=== PATIENT | female | born 1935 | race Caucasian/White ===

== ENCOUNTER 2024-01-28 07:48 | Inpatient (IN) | payer MEDICARE ==
[~2024-01-28] VITALS: Ht 162.6 cm; Wt 38.6 kg
[2024-01-28] VITALS (7 sets, daily range): BP systolic 115–163; BP diastolic 69–103
[2024-01-28] MEDS ORDERED: METOPROLOL SUCC25 M2 PO (08:10)
[2024-01-28] MEDS ORDERED: Acetaminophen/Hydrocodone 5 MG/325 MG TABLET PO ONE (08:35)
[2024-01-28 10:24] LABS: BASO % 0.3 % (0.0-1.0); EOS # 0.1 10*3/uL (0.0-0.4); EOS % 0.5 % (1.0-4.0); HEMATOCRIT 41.1 % (37.0-47.0); LYMPH # 1.5 10*3/uL (1.3-4.4); LYMPH % 15.9 % (27.0-41.0); MEAN CORPUSCULAR HGB 30.8 pg (27.0-31.0); MEAN CORPUSCULAR HGB CONC 31.1 g/dl (33.0-37.0); MEAN PLATELET VOLUME 9.9 fl (9.6-12.3); MONO # 0.5 10*3/uL (0.1-1.0); MONO % 5.3 % (3.0-9.0); NEUT # 7.1 10*3/uL (2.3-7.9); NEUT % 77.7 % (47.0-73.0); PLATELET COUNT AUTOMATED 148 10*3/uL (130-400); RED BLOOD COUNT 4.15 10*6/uL (4.10-5.10); RED CELL DISTRI WIDTH 13.2 % (0-14.5); WHITE BLOOD COUNT 9.1 10*3/uL (4.8-10.8)
[2024-01-28 10:43] LABS: ACT PARTIAL THROMBO TIME 25.6 SECONDS (20.0-32.1)
[2024-01-28 10:44] LABS: BUN 12 mg/dl (9-23); CHLORIDE 100 mmol/L (98-107); POTASSIUM 3.7 mmol/L (3.4-5.1)
[2024-01-28] MEDS ORDERED: BISACODYL 10 MG SUPP R PRN (11:45)
[2024-01-28] MEDS ORDERED: ACETAMINOPHEN 325 MG TAB PO PRN (11:45)
[2024-01-28] MEDS ORDERED: MORPHINE Sulfate 2 MG/ML SYR IV PRN (11:45)
[2024-01-28] MEDS ORDERED: Acetaminophen/Hydrocodone 5 MG/325 MG TABLET PO PRN (11:45)
[2024-01-28] MEDS ORDERED: BISACODYL 5 MG TAB PO PRN (11:45)
[2024-01-29] VITALS (11 sets, daily range): BP systolic 111–184; BP diastolic 71–127
[2024-01-29 05:46] LABS: ALKALINE PHOSPHATASE 64 U/L (46-116); BUN 14 mg/dl (9-23); CHLORIDE 101 mmol/L (98-107); CHOLESTEROL 116 mg/dL (<200); FREE T4 1.14 ng/dl (0.89-1.76); LDL CHOLESTEROL 55 mg/dL (9-159); TOTAL PROTEIN 6.5 gm/dL (6.0-8.0); TRIGLYCERIDES 56 mg/dl (<150)
[2024-01-29 05:51] LABS: SGPT/ALT < 7 U/L (5-49)
[2024-01-29 06:11] LABS: BASO % 0.4 % (0.0-1.0); EOS # 0.3 10*3/uL (0.0-0.4); EOS % 3.1 % (1.0-4.0); HEMATOCRIT 35.3 % (37.0-47.0); LYMPH # 1.3 10*3/uL (1.3-4.4); LYMPH % 15.4 % (27.0-41.0); MEAN CELL VOLUME 98.1 fl (81.0-99.0); MEAN CORPUSCULAR HGB 31.1 pg (27.0-31.0); MEAN CORPUSCULAR HGB CONC 31.7 g/dl (33.0-37.0); MEAN PLATELET VOLUME 10.8 fl (9.6-12.3); MONO # 0.5 10*3/uL (0.1-1.0); MONO % 5.6 % (3.0-9.0); NEUT # 6.4 10*3/uL (2.3-7.9); NEUT % 75.1 % (47.0-73.0); PLATELET COUNT AUTOMATED 136 10*3/uL (130-400); RED CELL DISTRI WIDTH 13.3 % (0-14.5); WHITE BLOOD COUNT 8.4 10*3/uL (4.8-10.8)
[2024-01-29 08:49] LABS: VITAMIN D, 25-HYDROXY 19.5 ng/mL (30-100)
[2024-01-29] MEDS ORDERED: Cholecalciferol 2,000 UNIT TABLET (50 MCG) PO SCH (10:00)
[2024-01-29] MEDS ORDERED: METOPROLOL SUCCINATE XR 25 MG TAB PO SCH (10:00)
[2024-01-29] MEDS ORDERED: SODIUM CHLORIDE 0.9% 1,000 ML IV ONE (10:31)
[2024-01-29] MEDS ORDERED: ceFAZolin sodium/sodium chlor 10 ML IV ONE ×2 (10:44→13:00)
[2024-01-29] MEDS ORDERED: TRANEXAMIC ACID IN NACL,ISO-OS 100 ML IV ONE ×2 (10:44→13:00)
[2024-01-29] MEDS ORDERED: DEXAMETHASONE SODIUM PHOSP/PRESERVATIVE FREE 10 MG/ML VIAL ONE (10:48)
[2024-01-29] MEDS ORDERED: Midazolam Hydrochloride 2 MG/2 ML VIAL ONE (10:48)
[2024-01-29] MEDS ORDERED: Ropivacaine Hydrochloride 5 MG/ML 20 ML AMP IJ ONE (10:49)
[2024-01-29] MEDS ORDERED: fentaNYL CITRATE/PF 50 MCG/ML SYRINGE ONE (12:46)
[2024-01-29] MEDS ORDERED: fentaNYL CITRATE 100 MCG/2 ML VIAL IV ONE (13:05)
[2024-01-29] MEDS ORDERED: hydrALAZINE hydrochloride 20 MG/ML VIAL ONE (13:25)
[2024-01-29] MEDS ORDERED: hydrALAZINE hydrochloride 20 MG/ML VIAL IV ONE (13:45)
[2024-01-29] MEDS ORDERED: Ondansetron Hydrochloride 4 MG/2 ML VIAL IV PRN (14:00)
[2024-01-29] MEDS ORDERED: fentaNYL CITRATE/PF 50 MCG/ML SYRINGE IV ONE (14:05)
[2024-01-29] MEDS ORDERED: PROPOFOL 200 MG/20 ML VIAL IV ONE (17:30)
[2024-01-29] MEDS ORDERED: ceFAZolin sodium 1 GM in SYRINGE INFUSION 10 ML IV SCH (18:00)
[2024-01-30] VITALS: BP 107/70
[2024-01-30 08:00] VITALS: BP 125/64
[2024-01-30] MEDS ORDERED: ASPIRIN ENTERIC COATED 81 MG TAB PO SCH (10:00)
[2024-01-30 12:00] VITALS: BP 111/71
[2024-01-30 16:00] VITALS: BP 125/81
[2024-01-30 20:00] VITALS: BP 128/69
[2024-01-31 06:13] LABS: BASO % 0.3 % (0.0-1.0); EOS # 0.2 10*3/uL (0.0-0.4); EOS % 2.5 % (1.0-4.0); LYMPH # 1.2 10*3/uL (1.3-4.4); LYMPH % 15.9 % (27.0-41.0); MEAN CELL VOLUME 98.6 fl (81.0-99.0); MEAN CORPUSCULAR HGB 31.3 pg (27.0-31.0); MEAN CORPUSCULAR HGB CONC 31.7 g/dl (33.0-37.0); MEAN PLATELET VOLUME 10.3 fl (9.6-12.3); MONO # 0.7 10*3/uL (0.1-1.0); MONO % 9.3 % (3.0-9.0); NEUT # 5.5 10*3/uL (2.3-7.9); NEUT % 71.6 % (47.0-73.0); PLATELET COUNT AUTOMATED 149 10*3/uL (130-400); RED BLOOD COUNT 3.55 10*6/uL (4.10-5.10); RED CELL DISTRI WIDTH 13.4 % (0-14.5); WHITE BLOOD COUNT 7.7 10*3/uL (4.8-10.8)
[2024-01-31 08:00] VITALS: BP 150/87
[2024-01-31 12:00] VITALS: BP 119/66
[2024-01-31 16:00] VITALS: BP 112/61
[2024-01-31 20:00] VITALS: BP 114/62
[2024-02-01] VITALS: BP 110/64
[2024-02-01 06:29] LABS: BASO % 0.5 % (0.0-1.0); EOS # 0.2 10*3/uL (0.0-0.4); EOS % 3.1 % (1.0-4.0); LYMPH % 16.2 % (27.0-41.0); MEAN CELL VOLUME 99.4 fl (81.0-99.0); MEAN CORPUSCULAR HGB 30.9 pg (27.0-31.0); MEAN CORPUSCULAR HGB CONC 31.1 g/dl (33.0-37.0); MEAN PLATELET VOLUME 10.5 fl (9.6-12.3); MONO # 0.5 10*3/uL (0.1-1.0); MONO % 7.7 % (3.0-9.0); NEUT # 4.6 10*3/uL (2.3-7.9); NEUT % 72.2 % (47.0-73.0); PLATELET COUNT AUTOMATED 153 10*3/uL (130-400); RED BLOOD COUNT 3.62 10*6/uL (4.10-5.10); RED CELL DISTRI WIDTH 13.3 % (0-14.5); WHITE BLOOD COUNT 6.4 10*3/uL (4.8-10.8)
[2024-02-01 07:31] LABS: BUN 25 mg/dl (9-23); CHLORIDE 99 mmol/L (98-107); POTASSIUM 4.4 mmol/L (3.4-5.1)
[2024-02-01 08:00] VITALS: BP 176/89
[2024-02-01 12:00] VITALS: BP 132/67
[2024-02-01 16:00] VITALS: BP 146/87
[2024-02-01 20:00] VITALS: BP 148/73
[2024-02-02 00:28] VITALS: BP 166/83
[2024-02-02 06:56] LABS: BASO % 0.5 % (0.0-1.0); EOS # 0.2 10*3/uL (0.0-0.4); EOS % 2.6 % (1.0-4.0); HEMATOCRIT 35.7 % (37.0-47.0); LYMPH # 1.1 10*3/uL (1.3-4.4); LYMPH % 17.9 % (27.0-41.0); MEAN CELL VOLUME 98.9 fl (81.0-99.0); MEAN CORPUSCULAR HGB 31.9 pg (27.0-31.0); MEAN CORPUSCULAR HGB CONC 32.2 g/dl (33.0-37.0); MEAN PLATELET VOLUME 10.9 fl (9.6-12.3); MONO # 0.4 10*3/uL (0.1-1.0); MONO % 7.3 % (3.0-9.0); NEUT # 4.3 10*3/uL (2.3-7.9); NEUT % 71.5 % (47.0-73.0); PLATELET COUNT AUTOMATED 168 10*3/uL (130-400); RED BLOOD COUNT 3.61 10*6/uL (4.10-5.10); RED CELL DISTRI WIDTH 13.3 % (0-14.5); WHITE BLOOD COUNT 6.1 10*3/uL (4.8-10.8)
[2024-02-02 08:00] VITALS: BP 184/90
[2024-02-02 12:00] VITALS: BP 156/85
[2024-02-02 16:00] VITALS: BP 133/72
[2024-02-02 20:30] VITALS: BP 181/84; BP 186/90
[2024-02-02] MEDS ORDERED: LISINOPRIL 20 MG TAB PO SCH (20:30)
[2024-02-03 00:24] VITALS: BP 150/82; BP 150/90
[2024-02-03 07:12] LABS: BUN 14 mg/dl (9-23); CHLORIDE 97 mmol/L (98-107); POTASSIUM 4.1 mmol/L (3.4-5.1)
[2024-02-03 08:00] VITALS: BP 146/82
[2024-02-03] MEDS ORDERED: LISINOPRIL20 MG PO (11:14)
[2024-02-03] MEDS ORDERED: ASPIRIN ADULT L81 M2 PO (11:14)
[2024-02-03] MEDS ORDERED: VITAMIN D350 MCG PO (11:14)
[2024-02-03] MEDS ORDERED: HYDROCODONE-AC1 EAC1 PO (11:15)
[2024-02-03 12:00] VITALS: BP 166/77
== END 2024-02-03 15:33 | DRG 480 ==
LOC: ED 07:48 → EDHOLD 10:39 → 4E 10:39 → EDHOLD 10:40 → 4E 11:01
PROVIDERS: Emergency Medicine; Orthopaedic Surgery; Registered Nurse; Student in an Organized Health Care Education/Training Program; ADMIT Internal Medicine; ATTEND Internal Medicine
PROC: 0QH736Z Insertion of Intramedullary Internal Fixation Device into Left Upper Femur, Percutaneous Approach (ICD-10-PCS; principal; 2024-01-29)
PROC: 3E0T3BZ Introduction of Anesthetic Agent into Peripheral Nerves and Plexi, Percutaneous Approach (ICD-10-PCS; 2024-01-29)
PROC: 3E0T33Z Introduction of Anti-inflammatory into Peripheral Nerves and Plexi, Percutaneous Approach (ICD-10-PCS; 2024-01-29)
DX: S72.145A Nondisplaced intertrochanteric fracture of left femur, initial encounter for closed fracture (principal); E43 Unspecified severe protein-calorie malnutrition; E87.1 Hypo-osmolality and hyponatremia; Z68.1 Body mass index [BMI] 19.9 or less, adult; M16.11 Unilateral primary osteoarthritis, right hip; M16.12 Unilateral primary osteoarthritis, left hip; E55.9 Vitamin D deficiency, unspecified; I10 Essential (primary) hypertension; R73.9 Hyperglycemia, unspecified; W01.0XXA Fall on same level from slipping, tripping and stumbling without subsequent striking against object, initial encounter; Y93.89 Activity, other specified; Y92.89 Other specified places as the place of occurrence of the external cause; Y99.8 Other external cause status; Z82.5 Family history of asthma and other chronic lower respiratory diseases

== ENCOUNTER → 2024-02-20 | Outpatient (CLI) | payer MEDICARE ==
[~2024-02-20] MED LIST: ASPIRIN ADULT L81 M2 PO; HYDROCODONE-AC1 EAC1 PO; LISINOPRIL20 MG PO; METOPROLOL SUCC25 M2 PO; VITAMIN D350 MCG PO
== END | disposition home or self-care (01) ==
LOC: ORTHO 03:32
PROVIDERS: ATTEND Orthopaedic Surgery
DX: S72.145A Nondisplaced intertrochanteric fracture of left femur, initial encounter for closed fracture (principal); X58.XXXA Exposure to other specified factors, initial encounter; Y93.9 Activity, unspecified; Y92.89 Other specified places as the place of occurrence of the external cause; Y99.8 Other external cause status